=== PATIENT | female | born 1975 | race Caucasian/White ===

== ENCOUNTER 2020-08-02 15:41 | Emergency (ER) | payer BC, OTHER ==
[~2020-08-02] VITALS: Ht 157.5 cm; Wt 72.0 kg
[2020-08-02 16:08] VITALS: BP 114/64
--- NOTE | 2020-08-02 16:33 | RAD ---
Single view chest dated 08/02/2020: Comparison made to 05/06/2006 Clinical Indication: Cough and shortness of breath. Findings: Single upright portable exam of the chest was performed. Heart size and mediastinal contours are within normal limits given technique. The lungs are clear without evidence of focal consolidation. Vascular interstitium is within normal limits. Impression:: Negative portable chest. Electronically signed by: Kenneth Bain MD (08/02/2020 4:30 PM) [id number]
--- NOTE | 2020-08-02 16:48 | PHYS DOC ---
Past Medical History Past Medical History: Other Additional Past Medical Histor: COVID19 Past Surgical History: Tubal ligation Smoking Status: Never Smoker Alcohol Use: None General Adult EDM: Chief Complaint: SHORTNESS OF BREATH HPI: HPI: Patient is a 45 year old female who presented to ER with complaint of trouble breathing. Patient was diagnosed with COVID-19 infection on July 22. She was put on albuterol inhaler for trouble breathing by her family physician. Patient said whenever she used her inhaler she feels like her heart was racing. Patient denies any chest pain. Patient said the sore throat and the cough had improved BUT She does not know why she still has shortness of air with exertion. Patient denied any medical history started hypertension or diabetic. Patient denies history of heart disease. Patient denies any history of blood clot disorder. Patient denied smoking. Patient denies any recent travel or operation. Patient denies any family history of heart disease or blood clot disorder. Review of Systems: Review of Systems: Constitutional: Denies fever or chills. [] Eyes: Denies change in visual acuity. [] HENT: Denies nasal congestion or sore throat. [] Respiratory: Positive for cough and trouble breathing. Cardiovascular: Denies chest pain or edema. [] GI: Denies abdominal pain, nausea, vomiting, bloody stools or diarrhea. [] : Denies dysuria. [] Musculoskeletal: Denies back pain or joint pain. [] Integument: Denies rash. [] Neurologic: Denies headache, focal weakness or sensory changes. [] Endocrine: Denies polyuria or polydipsia. [] Lymphatic: Denies swollen glands. [] Psychiatric: Denies depression or anxiety. [] Heart Score: Risk Factors: Risk Factors: DM, Current or recent (<one month) smoker, HTN, HLP, family history of CAD, obesity. Risk Scores: Score 0 - 3: 2.5% MACE over next 6 weeks - Discharge Home Score 4 - 6: 20.3% MACE over next 6 weeks - Admit for Clinical Observation Score 7 - 10: 72.7% MACE over next 6 weeks - Early Invasive Strategies Physical Exam: PE: Constitutional: Well developed, well nourished, no acute distress, non-toxic appearance. [] HENT: Normocephalic, atraumatic, bilateral external ears normal, oropharynx moist, no oral exudates, nose normal. [] Eyes: PERRLA, EOMI, conjunctiva normal, no discharge. [] Neck: Normal range of motion, no tenderness, supple, no stridor. [] Cardiovascular:Heart rate regular rhythm, no murmur [] Lungs & Thorax: Bilateral breath sounds clear to auscultation [] Abdomen: Bowel sounds normal, soft, no tenderness, no masses, no pulsatile masses. [] Skin: Warm, dry, no erythema, no rash. [] Back: No tenderness, no CVA tenderness. [] Extremities: No tenderness, no cyanosis, no clubbing, ROM intact, no edema. [] Neurologic: Alert and oriented X 3, normal motor function, normal sensory function, no focal deficits noted. [] Psychologic: Affect normal, judgement normal, mood normal. [] Current Patient Data: Vital Signs: Vital Signs Date Time Temp Pulse Resp B/P (MAP) Pulse Ox O2 Delivery O2 Flow Rate FiO2 08/02/20 16:08 97.3 89 18 114/64 (81) 100 Room Air 97.3 EKG: EKG: EKG was done at 1615, heart rate 74 bpm, sinus rhythm, no ST segment elevation. There are some T wave inversion in V1 V2 and V3. [] Radiology/Procedures: Radiology/Procedures: [][facility] [address] [place], [place] [id number] IMAGING REPORT Signed PATIENT: SANTANA HERNANDEZ ACCOUNT: [id number] : 1975 LOCATION: ER AGE: 45 SEX: F EXAM STATUS: PRE ER ORD. PHYSICIAN: JER HERNANDEZ DO REASON: COUGH, SOA PROCEDURE: CHEST AP ONLY Single view chest dated 08/02/2020: Comparison made to 05/06/2006 Clinical Indication: Cough and shortness of breath. Findings: Single upright portable exam of the chest was performed. Heart size and mediastinal contours are within normal limits given technique. The lungs are clear without evidence of focal consolidation. Vascular interstitium is within normal limits. Impression:: Negative portable chest. Electronically signed by: Kenneth Bain MD (08/02/2020 4:30 PM) [id number] DICTATED and SIGNED BY: KENNETH BAIN MD DATE: 08/02/20 1630 Course & Med Decision Making: Course & Med Decision Making Pertinent Labs and Imaging studies reviewed. (See chart for detaill: Patient chest x-ray is normal, she was in no acute distress. Patient oxygen saturation was 100% on room air with a heart rate of 75 beats per minutes. It is unlikely that her symptom is relating to CAD OR BLOOD CLOT DISORDER. Patient will be discharged home. Dragon Disclaimer: [employer] Disclaimer: This electronic medical record was generated, in whole or in part, using a voice recognition dictation system. Departure Departure Impression: Primary Impression: Acute dyspnea Disposition: 01 DC HOME SELF CARE/HOMELESS Condition: STABLE Referrals: JERONIMO VAUGHN MD (PCP) PLEASE FOLLOW UP WITH YOUR DOCTOR NEXT WEEK FOR REEVALUATION Patient Instructions: Shortness of Breath, [id number] Additional Instructions: Thank you for visiting our Emergency Department. We appreciate you trusting us with your care. If any additional problems come up don't hesitate to return to visit us. Please follow up with your primary care provider so they can plan additional care if needed and know about the problem that you had. If symptoms worsen come back to the Emergency Department. Any concerning symptoms that start such as chest pain, shortness of air, weakness or numbness on one side of the body, running high fevers or any other concerning symptoms return to the ER. JER HERNANDEZ DO Aug 02, 2020 16:48
--- NOTE | 2020-08-02 18:01 | EKG ---
[facility] [address] [place] [address] Test Date: 2020-08-02 Test Time: 16:15:49 Pat Name: SANTANA HERNANDEZ Department: Room: Gender: F [employer] Operator: : 1975 Requested By: JER HERNANDEZ Order Number: [id number] Reading MD: Measurements Intervals Burton Rate: 74 P: 31 NM: 126 QRS: 46 QRSD: 70 T: 11 QT: 392 QTc: 440 Interpretive Statements SINUS RHYTHM T ABNORMALITY IN ANTEROSEPTAL LEADS ABNORMAL ECG RI6.02 No previous ECG available for comparison
== END 2020-08-02 17:00 | disposition home or self-care (01) ==
LOC: ER 15:41
DX: R06.02 Shortness of breath (principal)
CPT/HCPCS: 71045; 93005; 99283